=== PATIENT | female | born 1975 | race Hispanic/Latino ===

== ENCOUNTER 2018-04-09 05:23 | Day surgery (SDC) | payer OTHER, SELFPAY ==
[2018-04-05 11:46] LABS: Hemoglobin 13.7 g/dl (12.0-15.0); Mean Corp Hgb Conc 34.3 g/gl (32-36); Mean Corpuscular Hgb 30.6 pg (27.0-32.0); Mean Corpuscular Volume 89.3 fL (81-99); Mean Platelet Vol. 12.3 fl (6.2-12.0); Platelet Count 75 K/mm3 (150-450); RBC Distribution Width CV 12.3 % (11.6-14.6); RBC Distribution Width SD 39.9 fl (35.1-43.9); Red Blood Count 4.48 M/mm3 (4.2-5.4); White Blood Count 4.4 K/mm3 (4.4-11.0)
[2018-04-05 11:47] LABS: Scan Indicated on CBC? Y/N NO
[2018-04-09] VITALS (7 sets, daily range): BP systolic 97–105; BP diastolic 63–71; PULSE 58–81; RESP 14–16; TEMP 36.5–36.6; O2SAT 99–100; BMI 24.0
--- NOTE | 2018-04-09 | EMB_PTH ---
PATIENT: LUCILA MYERS LOC: [facility] [place] U#:[id number] AGE/SX: 42/F ROOM: RE04/09/[address]: Dr. Rich Muller MD : 1975 BED: DIS: 04/09/2018 SPEC #: [id number] RECD: 04/09/18 12:02 STATUS: ARIANA TASH #: [id number] ROMA: 04/09/18 00:[address]: iRch Muller DEPT: SURGICAL PATHOLOGY RECD BY: Carter Petersen ENTERED: 04/09/18 12:03 SP TYPE: ENDOM BX/C SEYM[place] DR: Dr. Matt Romero MD Tissues: Endometrium, NOS Procedures: Surgery Specimen Level IV HEADER OPERATION: Hysteroscopy, dilation and curettage, Mirena IUD insertion PRE-OP DIAGNOSIS: Abnormal uterine bleeding TISSUE SUBMITTED: Endometrial curettings MICROSCOPIC DIAGNOSIS Endometrial curettings: Proliferative endometrium. SJ:jorge 10/31/18 MICROSCOPIC DESCRIPTION Slides are reviewed. GROSS DESCRIPTION Received in fixative is one container labeled with the patient's name and designated endometrial curettings. The specimen consists of multiple fragments of fong-pink soft tissue that in aggregate measure 3 x 2.5 x 0.3 cm. The entire specimen is submitted in one cassette. / SJ:rg 04/09/18 TC:4 CPT: 28501
[2018-04-09 06:00] LABS: Internal QC Validated? YES +Cl - CLEAR BKGD; Pregnancy, Urine Negative Negative
[2018-04-09 06:32] LABS: Hematocrit 37.8 % (37-47); Hemoglobin 12.7 g/dl (12.0-15.0); Mean Corp Hgb Conc 33.6 g/gl (32-36); Mean Corpuscular Hgb 30.2 pg (27.0-32.0); Mean Platelet Vol. 11.7 fl (6.2-12.0); Platelet Count 78 K/mm3 (150-450); RBC Distribution Width CV 12.1 % (11.6-14.6); RBC Distribution Width SD 39.3 fl (35.1-43.9); White Blood Count 3.8 K/mm3 (4.4-11.0)
[2018-04-09 06:33] LABS: Scan Indicated on CBC? Y/N NO
--- NOTE | 2018-04-09 08:18 | PCM.OPRPT ---
Report of Operation Date of Procedure: 04/09/18 Pre-Operative Diagnosis: AUB, thickened endometrium, small endometrial polyps Post-Operative Diagnosis: Same Surgery/Procedure Performed:: Hysteroscopy with D&C, Mirena IUD insertion Description of Surgical Findings:: Uterine cavity that sounded to 9cm Thickened endometrial tissue with possible small polyps (vs thickened tissue) No distinct lesion or masses noted Net hysteroscopic fluid loss = 50ml Type of Anesthesia:: MAC/Supplemental/Local Specimen's removed: EMC, possible small endometrial polyps Drains: straight cath 250ml urine Estimated Blood Loss (mL): 20ml Fluids Replaced: 800ml Description of Procedure: Patient taken to OR where MAC anesthesia placed. She was placed in the dorsal lithotomy position, prepped & draped in normal sterile fashion. Cervix grasped with a tenaculum. Paracervical block given. Cervix was already dilated. Uterus sounded to 9cm. Hysteroscope introduced. Sharp curettage gently performed with the number 1 curette. Uterine forceps used to grasp additional endometrial tissue & possible endometrial polyp. Repeat hysteroscopy & curettage performed. Mirena IUD then inserted per protocol. IUD strings cut to 4-5cm. All instruments removed from vaginal cavity. Patient tolerated procedure well. - Complications None
--- NOTE | 2018-04-09 08:26 | DCINST_ITS ---
Discharge Diet: No Restrictions Discharge Activity: Return to Normal Activity - AFTER 24 hours May resume sexual activity in: 2 weeks Weight Bearing Status: Weight bearing as tolerated Call your doctor if you observe: Fever of 101 or Higher, Coldness, Increased Pain, Numbness or Tingling, Change in Color, Inability to urinate, Inability to have a bowel movement, Using more than one pad per hour, Shortness of breath, Fainting spells, Chest pain, Increased palpitations (irregular heartbeat), Uncontrolled pain Allergies/Adverse Reactions: Allergies No Known Allergies Allergy (Verified 04/05/18 08:20) Medications to take at Discharge Albuterol Inhaler [Ventolin Hfa] 1 - 2 puff INHALATION Q4H PRN PRN 04/05/18 Ferrous Sulfate [Iron] 325 mg PO DAILY 04/05/18 Orders to be completed after discharge: Type & Screen Time Frame: 04/05/18, Location: None Selected CBC-Complete Blood Cnt No Diff Time Frame: 04/05/18, Location: Laboratory Primary Care Physician: Matt Romero MD [Primary Care Provider] - Test Results: Test results from this visit will be discussed in further detail at your follow- up appointment, if applicable.
== END 2018-04-09 10:10 | disposition home or self-care (01) ==
LOC: SDC 05:24 → AC 05:24
PROVIDERS: Anesthesiology; Family Provider Family Medicine; PCP Family Medicine; Referring Provider Obstetrics & Gynecology; Visit Provider Obstetrics & Gynecology
PROC: 0UDB8ZZ Extraction of Endometrium, Via Natural or Artificial Opening Endoscopic (ICD-10-PCS; CPT 58558; principal; 2018-04-09 07:20)
DX: N93.9 Abnormal uterine and vaginal bleeding, unspecified (principal); R93.89 Abnormal findings on diagnostic imaging of other specified body structures; D64.9 Anemia, unspecified; J45.909 Unspecified asthma, uncomplicated; D69.6 Thrombocytopenia, unspecified; Z87.891 Personal history of nicotine dependence; Z79.51 Long term (current) use of inhaled steroids
CPT/HCPCS: 00940; 58300; 58558; 36415; 81025; 85027; 86850; 86900; 88305; J7120